=== PATIENT | male | born 1980 | race Caucasian/White ===

== ENCOUNTER 2021-09-20 18:45 | Emergency (ER) | payer OTHER ==
[~2021-09-20] VITALS: Ht 172.7 cm; Wt 72.0 kg
[2021-09-20] MEDS ORDERED: IBUPROFEN 600MG TABLET PO ONE (19:15)
[2021-09-20 19:46] VITALS: BP 122/84
[2021-09-20] MEDS ORDERED: HYDR-4009 MT (21:11)
[2021-09-20] MEDS ORDERED: IBUP-2029 MT (21:11)
== END 2021-09-20 21:43 | disposition home or self-care (01) ==
LOC: ER 18:45
DX: S82.292A Other fracture of shaft of left tibia, initial encounter for closed fracture (principal); F15.10 Other stimulant abuse, uncomplicated; F17.210 Nicotine dependence, cigarettes, uncomplicated; Z88.0 Allergy status to penicillin; Z71.6 Tobacco abuse counseling; Y35.893A Legal intervention involving other specified means, suspect injured, initial encounter; Y93.89 Activity, other specified; Y92.488 Other paved roadways as the place of occurrence of the external cause
CPT/HCPCS: 29505; 73590; 99283; 99406; Z7610